=== PATIENT | female | born 2000 | race Two or more races ===

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

== ENCOUNTER → 2021-05-11 | Outpatient (CLI) | payer MEDICAID ==
[~2021-05-11] MED LIST: DOCU-109 PO; IBUP-1060 PO
== END ==
LOC: LAB 13:46
PROVIDERS: ATTEND Obstetrics & Gynecology
DX: Z01.812 Encounter for preprocedural laboratory examination (principal); U07.1 COVID-19; O00.01 Abdominal pregnancy with intrauterine pregnancy; Z3A.40 40 weeks gestation of pregnancy
CPT/HCPCS: U0003

== ENCOUNTER 2021-05-12 17:01 | Inpatient (IN) | payer MEDICAID ==
[~2021-05-12] VITALS: Ht 157.5 cm; Wt 90.0 kg
[2021-05-12] MEDS ORDERED: OXYTOCIN 30 UNIT/500 ML PREMIX 500 ML IV PRN ×2 (17:15)
[2021-05-12] MEDS ORDERED: IBUPROFEN 400 MG TABLET. PO PRN (17:15)
[2021-05-12] MEDS ORDERED: TERBUTALINE 1 MG/ML VIAL. SQ PRN (17:15)
[2021-05-12] MEDS ORDERED: LIDOCAINE 1% PF 30 ML VIAL. INJ PRN (17:15)
[2021-05-12] MEDS ORDERED: 0.9 % SODIUM CHLORIDE 10 ML DISP.SYRIN. IV PRN (17:15)
[2021-05-12 18:00] VITALS: BP 111/77
[2021-05-12] MEDS ORDERED: DINOPROSTONE 10 MG SUPP.VAG VG ONE (18:15)
[2021-05-12 18:58] LABS: BILIRUBIN,URINE SMALL (NEG); CLARITY,URINE CLOUDY; COLOR,URINE AMBER; NITRITE,URINE NEGATIVE (NEG); PH,URINE 6.5 (<5.0-8.0); PROTEIN,URINE 30 mg/dL (NEG-TRACE)
[2021-05-12] MEDS: IV RINGERS,LACTATED 1000ML 1,000 ML IV SCH (19:01)
[2021-05-12 19:13] LABS: BACTERIA,URINE MANY /HPF (0-FEW); RBC,URINE RARE /HPF (0-2)
[2021-05-12 19:51] LABS: BASO % 0 % (0-3); EOS # 0.1 x10^3/uL (0.0-0.7); EOS % 1 % (0-3); HEMATOCRIT 37.5 % (36.0-47.0); HEMOGLOBIN 12.6 g/dL (12.0-15.5); LYMPH # 1.9 x10^3/uL (1.0-4.8); LYMPH % 18 % (24-48); MEAN CORPUSCULAR HEMOGLOBIN 31 pg (25-35); MEAN CORPUSCULAR HGB CONC 34 g/dL (31-37); MEAN CORPUSCULAR VOLUME 91 fL (79-100); MONO # 0.7 x10^3/uL (0.0-1.1); MONO % 6 % (0-9); NEUT # 8.2 x10^3/uL (1.8-7.7); NEUT % 76 % (31-73); PLATELET COUNT 251 x10^3/uL (140-400); RED BLOOD COUNT 4.11 x10^6/uL (3.50-5.40); RED CELL DISTRIBUTION WIDTH 13.6 % (11.5-14.5); WHITE BLOOD COUNT 10.8 x10^3/uL (4.0-11.0)
[2021-05-13] MEDS: IV RINGERS,LACTATED 1000ML 1,000 ML IV SCH ×3 (05:54→12:08)
--- NOTE | 2021-05-13 09:01 | PDOC1 ---
MAIL DISTRIBUTOR H&P Date of Admission: Date of Admission: May 12, 2021 at 17:01 History of Present Illness: EDC: 05/11/21 LMP: 08/16/20 20y @ 40.2 by 22wk u/s presents for scheduled indxn. The pt has been relatively uncomplicated. When she arrived her cervix was dilated to 1-2 cm. A cervidil was placed overnight. When it was removed she was dilated to 1- 2 cm. Pit was started. She eventually SROM around 0815. After ROM she was now dilated to 3-4 cm. PMH: Denies PSH: Denies Meds: PNV, DHA, ASA All: NKDA OBHx: G1 SH: no tob, no etOH FH: noncontributory Allergies: Coded Allergies: No Known Drug Allergies (Unverified , 06/24/18) Physical Exam: Vital Signs: Vital Signs Date Time Temp Pulse Resp B/P (MAP) Pulse Ox O2 Delivery O2 Flow Rate FiO2 05/12/21 18:00 99.4 77 20 111/77 (88) 99.4 PE: GENERAL: No apparent distress. Alert and oriented. HEENT: Head normocephalic, atraumatic. NECK: Supple LUNGS: Clear to auscultation. HEART: RRR, S1, S2 present, pulses intact ABDOMEN: Soft, positive bowel sounds. EXTREMITIES: No cyanosis or edema. NEUROLOGIC: Normal speech, normal tone PSYCHIATRIC: Normal affect, normal mood. SKIN: No ulceration. FHT: 140s +acels/variables with ctxs with ROM/mLTV [place]: 2-3 min SVE: 3-4/90/-1 Labs: Laboratory Tests Test 05/12/21 17:30 05/12/21 19:25 05/12/21 19:40 Urine Collection Type Unknown Urine Color Debora Urine Clarity Cloudy Urine pH 6.5 (<5.0-8.0) Urine Specific [place] 1.025 (1.000-1.030) Urine Protein 30 mg/dL (NEG-TRACE) Urine Glucose (UA) Negative mg/dL (NEG) Urine Ketones (Stick) Trace mg/dL (NEG) Urine Blood Negative (NEG) Urine Nitrite Negative (NEG) Urine Bilirubin Small (NEG) Urine Urobilinogen Dipstick 1.0 mg/dL (0.2 mg/dL) Urine Leukocyte Esterase Small (NEG) Urine RBC Rare /HPF (0-2) Urine WBC 5-10 /HPF (0-4) Urine Squamous Epithelial Cells Many /LPF Urine Bacteria Many /HPF (0-FEW) Urine Mucus Mod /LPF Treponema pallidum Antibody Nonreactive (Nonreactive) White Blood Count 10.8 x10^3/uL (4.0-11.0) Red Blood Count 4.11 x10^6/uL (3.50-5.40) Hemoglobin 12.6 g/dL (12.0-15.5) Hematocrit 37.5 % (36.0-47.0) Mean Corpuscular Volume 91 fL (79-100) Mean Corpuscular Hemoglobin 31 pg (25-35) Mean Corpuscular Hemoglobin Concent 34 g/dL (31-37) Red Cell Distribution Width 13.6 % (11.5-14.5) Platelet Count 251 x10^3/uL (140-400) Neutrophils (%) (Auto) 76 % (31-73) H Lymphocytes (%) (Auto) 18 % (24-48) L Monocytes (%) (Auto) 6 % (0-9) Eosinophils (%) (Auto) 1 % (0-3) Basophils (%) (Auto) 0 % (0-3) Neutrophils # (Auto) 8.2 x10^3/uL (1.8-7.7) H Lymphocytes # (Auto) 1.9 x10^3/uL (1.0-4.8) Monocytes # (Auto) 0.7 x10^3/uL (0.0-1.1) Eosinophils # (Auto) 0.1 x10^3/uL (0.0-0.7) Basophils # (Auto) 0.0 x10^3/uL (0.0-0.2) Laboratory Tests 05/12/21 19:40 Laboratory Tests 05/12/21 19:40 Assessment & Plan: A/P 20y @ 40.1 by 22wk u/s 1.) Indxn s/p cervidil, on Pit 2.) Late presentation 3.) Bilateral pyelecatasis - present on 29 wk u/s 4.) TDAP given 03/05/21 5.) Flu vaccine given 03/05/21 6.) Fetus cat I FHT 7.) GBS neg GEOFFREY YUNG MD May 13, 2021 09:01
[2021-05-13] MEDS ORDERED: L&D EPIDURAL SYRINGE 50 ML ONE ×2 (09:27→12:31)
[2021-05-13] MEDS ORDERED: fentaNYL PF VIAL 100 MCG/2 ML VIAL ONE (09:27)
[2021-05-13] MEDS ORDERED: ROPIVacaine 0.2% PF 10 ML VIAL. ONE ×2 (09:27→10:30)
[2021-05-13] MEDS ORDERED: L&D EPIDURAL 50 ML SYRINGE. ONE (10:30)
--- NOTE | 2021-05-13 14:47 | PDOC4 ---
VAGINAL DELIVERY DATE DATE: 05/13/21 TIME: 14:46 TIME Patient delivered a viable male infant over intact perineum at 1324. Wt 7 lb 1 oz. Apgars 9/9. Placenta delivered spontaneously, intact with 3VC. 1st degree lacerations hemostatic and in no need of repair. Good hemostasis noted. 20 U of Pit given with IVF. EBL 200 cc. WEIGHT Weight [ ] GEOFFREY YUNG MD May 13, 2021 14:47
[2021-05-13] MEDS ORDERED: MAGNESIUM HYDROXIDE 2,400 MG/30 ML ORAL.SUSP. PO PRN (15:00)
[2021-05-13] MEDS ORDERED: ZOLPIDEM 5 MG TABLET. PO PRN (15:00)
[2021-05-13] MEDS ORDERED: 0.9 % SODIUM CHLORIDE 10 ML DISP.SYRIN. IV PRN (15:00)
[2021-05-13] MEDS ORDERED: MAG HYDROX/ALUMINUM HYD/SIMETH 30 ML ORAL.SUSP PO PRN (15:00)
[2021-05-13] MEDS ORDERED: HYDROCORTISONE 1% TOPICAL OINTMENT 30GM TUBE. TP PRN (15:00)
[2021-05-13] MEDS ORDERED: diphenhydrAMINE HCL 25 MG CAPSULE PO PRN (15:00)
[2021-05-13] MEDS ORDERED: ACETAMINOPHEN 325 MG TABLET. PO PRN (15:00)
[2021-05-13] MEDS ORDERED: MMR per PROTOCOL. MC PRN (15:00)
[2021-05-13] MEDS ORDERED: PHENYLEPH/MINERAL OIL/PETROLAT RECTAL OINTMENT TUBE. RC PRN (15:00)
[2021-05-13] MEDS ORDERED: OXYTOCIN 30 UNIT/500 ML PREMIX 500 ML IV PRN (15:00)
[2021-05-13] MEDS ORDERED: SIMETHICONE 80 MG TAB.CHEW PO PRN (15:00)
[2021-05-13] MEDS ORDERED: TDaP (BOOSTRIX) per PROTOCOL. MC PRN (15:00)
[2021-05-13] MEDS ORDERED: BENZOCAINE 20% TOPICAL AEROSOL SPRAY 57GM CAN. TP PRN (15:00)
[2021-05-13] MEDS ORDERED: oxyCODONE/APAP 5/325 1 TAB TABLET PO PRN (15:00)
[2021-05-13] MEDS: IBUPROFEN 400 MG TABLET. PO PRN (16:15)
[2021-05-13 17:55] VITALS: BP 115/59
[2021-05-13 20:20] VITALS: BP 126/72
[2021-05-14 00:10] VITALS: BP 115/56
[2021-05-14 05:00] VITALS: BP 120/67
[2021-05-14 08:00] VITALS: BP 114/66
[2021-05-14 08:07] LABS: HEMATOCRIT 36.1 % (36.0-47.0); HEMOGLOBIN 11.6 g/dL (12.0-15.5); RED BLOOD COUNT 3.97 x10^6/uL (3.50-5.40); RED CELL DISTRIBUTION WIDTH 13.6 % (11.5-14.5); WHITE BLOOD COUNT 12.6 x10^3/uL (4.0-11.0)
[2021-05-14] MEDS: DOCUSATE SODIUM 100 MG CAPSULE. PO PRN ×2 (09:08→18:05)
[2021-05-14] MEDS: FERROUS SULFATE 325 MG TABLET. PO SCH ×2 (09:08→18:05)
[2021-05-14] MEDS: PRENATAL MULTIVITAMIN TABLET. PO SCH (09:09)
[2021-05-14] MEDS: IBUPROFEN 400 MG TABLET. PO PRN ×2 (09:10→18:07)
--- NOTE | 2021-05-14 09:30 | PDOC ---
GENERATION ENGINEERING TECHNOLOGIST PROGRESS NOTE Date of Service: DATE: 05/14/21 TIME: 09:30 Subjective: Pt with good pain control. Drake PO. Voiding. Minimal lochia. Objective: Vital Signs: Vital Signs Date Time Temp Pulse Resp B/P (MAP) Pulse Ox O2 Delivery O2 Flow Rate FiO2 05/13/21 17:55 98.8 78 18 115/59 (77) 98 Room Air 98.8 Vital Signs Date Time Temp Pulse Resp B/P (MAP) Pulse Ox O2 Delivery O2 Flow Rate FiO2 05/14/21 08:00 98.4 75 16 114/66 (82) 99 Room Air 98.4 Labs: Laboratory Tests Test 05/14/21 07:45 White Blood Count 12.6 x10^3/uL (4.0-11.0) H Red Blood Count 3.97 x10^6/uL (3.50-5.40) Hemoglobin 11.6 g/dL (12.0-15.5) L Hematocrit 36.1 % (36.0-47.0) Mean Corpuscular Volume 91 fL (79-100) Mean Corpuscular Hemoglobin 29 pg (25-35) Mean Corpuscular Hemoglobin Concent 32 g/dL (31-37) Red Cell Distribution Width 13.6 % (11.5-14.5) Platelet Count 233 x10^3/uL (140-400) Laboratory Tests 05/14/21 07:45 Laboratory Tests 05/14/21 07:45 Physical Exam: GENERAL: No apparent distress. Alert and oriented. HEENT: Head normocephalic, atraumatic. NECK: Supple LUNGS: Clear to auscultation. HEART: RRR, S1, S2 present, pulses intact ABDOMEN: Soft, positive bowel sounds. EXTREMITIES: No cyanosis or edema. NEUROLOGIC: Normal speech, normal tone PSYCHIATRIC: Normal affect, normal mood. SKIN: No ulceration. FFNT below umb No C/C/E Assessment & Plan: A/P 20y PPD #1 s/p 1.) PP doing well 2.) Late presentation 3.) Bilateral pyelecatasis peds aware 4.) TDAP given 03/05/21 5.) Flu vaccine given 03/05/21 6.) Hgb 12.6 -> 11.6 7.) Cont PP GEOFFREY Aguilera MD May 14, 2021 09:30
[2021-05-14 11:51] VITALS: BP 112/60
--- NOTE | 2021-05-14 15:00 | NUR ---
Instructed pt and fob not to leave baby on her bed unless sitting bedside him since he can roll and fall off bed
[2021-05-14 20:20] VITALS: BP 111/55
[2021-05-15 04:50] VITALS: BP 120/67
[2021-05-15] MEDS: IBUPROFEN 400 MG TABLET. PO PRN (05:06)
[2021-05-15 08:00] VITALS: BP 112/59
[2021-05-15] MEDS: FERROUS SULFATE 325 MG TABLET. PO SCH (08:57)
[2021-05-15] MEDS: PRENATAL MULTIVITAMIN TABLET. PO SCH (08:57)
[2021-05-15] MEDS: DOCUSATE SODIUM 100 MG CAPSULE. PO PRN (08:57)
[2021-05-15] MEDS ORDERED: DOCU-109 PO (09:24)
[2021-05-15] MEDS ORDERED: IBUP-1060 PO (09:24)
[2021-05-15 10:00] VITALS: BP 122/68
--- NOTE | 2021-05-15 10:40 | PDOC ---
DITCH DIGGER PROGRESS NOTE Date of Service: DATE: 05/15/21 TIME: 10:40 Subjective: Pt with good pain control. Drake PO. Voiding. Minimal lochia. Objective: Vital Signs: Vital Signs Date Time Temp Pulse Resp B/P (MAP) Pulse Ox O2 Delivery O2 Flow Rate FiO2 05/14/21 08:00 98.4 75 16 114/66 (82) 99 Room Air 98.4 Vital Signs Date Time Temp Pulse Resp B/P (MAP) Pulse Ox O2 Delivery O2 Flow Rate FiO2 05/15/21 08:00 98.3 68 20 112/59 (76) 98.3 05/15/21 04:50 100 Room Air Physical Exam: GENERAL: No apparent distress. Alert and oriented. HEENT: Head normocephalic, atraumatic. NECK: Supple LUNGS: Clear to auscultation. HEART: RRR, S1, S2 present, pulses intact ABDOMEN: Soft, positive bowel sounds. EXTREMITIES: No cyanosis or edema. NEUROLOGIC: Normal speech, normal tone PSYCHIATRIC: Normal affect, normal mood. SKIN: No ulceration. FFNT below umb No C/C/E Assessment & Plan: A/P 20y PPD #2 s/p 1.) PP doing well 2.) Late presentation 3.) Bilateral pyelecatasis peds aware 4.) TDAP given 03/05/21 5.) Flu vaccine given 03/05/21 6.) Hgb 12.6 -> 11.6 7.) D/c home GEOFFREY YUNG MD May 15, 2021 10:40
--- NOTE | 2021-05-15 11:17 | DS ---
DATE OF DISCHARGE: 05/15/2021 ADMISSION DIAGNOSES: 1. Intrauterine at 40 weeks and 2 days by 22-week ultrasound. 2. Scheduled induction. 3. Late presentation to care. 4. Bilateral pyelectasis. 5. Status post Tdap. 6. Status post flu vaccine. 7. Group B Streptococcus negative. DISCHARGE DIAGNOSES: 1. Intrauterine at 40 weeks and 2 days by 22-week ultrasound. 2. Scheduled induction. 3. Late presentation to care. 4. Bilateral pyelectasis. 5. Status post Tdap. 6. Status post flu vaccine. 7. Group B Streptococcus negative. PROCEDURE: Spontaneous vaginal delivery. BRIEF HOSPITAL COURSE: The patient is a 20-year-old 1, para 0, who presented to Labor and Delivery at 40 weeks and 2 days by 22-week ultrasound for scheduled induction. The patient had had a relatively uncomplicated . When she arrived, her cervix was dilated to 1-2 cm. A Cervidil was placed overnight. When the Cervidil was removed, the patient was found to be 1-2 cm. The patient was then started on Pitocin. The patient eventually experienced spontaneous rupture of membranes and continued to Labor until she became complete. The patient delivered by vaginal delivery early that afternoon, see delivery note for full detail. By day #2, the patient was meeting all discharge criteria and subsequently discharged home. Of note, the patient's hemoglobin on admission was 12.6 and after delivery was found to be 11.6. CALL IF: The patient was to call if she had fevers, chills, nausea, vomiting, abdominal pain or any additional questions or concerns. DISCHARGE INSTRUCTIONS: The patient was told not to lift anything greater than 20 pounds, have pelvic rest for 6 weeks. FOLLOWUP APPOINTMENT: The patient was to follow up on 06/25/2021 at 2:20 p.m. for her visit. DISCHARGE MEDICATIONS: The patient was given a prescription for Motrin 800 mg, 30 pills and Colace 100 mg, 30 pills. SCAR/JANIE DR: Kelsey TID: [id number]
== END 2021-05-15 10:30 | disposition home or self-care (01) | DRG 951 ==
LOC: 3 SO LND 17:01
PROVIDERS: ADMIT Obstetrics & Gynecology; ATTEND Obstetrics & Gynecology
PROC: 10E0XZZ Delivery of Products of Conception, External Approach (ICD-10-PCS; principal; 2021-05-12)
PROC: 3E0P7VZ Introduction of Hormone into Female Reproductive, Via Natural or Artificial Opening (ICD-10-PCS; 2021-05-12)
DX: Z3A.40 40 weeks gestation of pregnancy (principal); O70.0 First degree perineal laceration during delivery; Z37.0 Single live birth
CPT/HCPCS: 36415; 81001; 85025; 85027; 86592; 86850; 86900; 86901; 87086; J2590; J2795; J3010; J7120; G0378